=== PATIENT | female | born 1955 | race African-American/Black ===

== ENCOUNTER 2023-06-03 12:46 | Observation (INO) | payer BC, OTHER, SELFPAY ==
[2023-06-03 14:09] LABS: #Monocytes 0.5 10x3/uL (0.0-1.1); #Neutrophils 8.1 10x3/uL (1.5-8.4); %Basophils 0.2 % (0.0-2.0); %Lymphocytes 7.5 % (18.0-47.0); %Monocytes 4.9 % (0.0-10.0); Hematocrit 31.8 % (34.9-44.5); Hemoglobin 10.6 g/dL (12.0-15.5); Mean Corpuscular HGB CONC 33.3 g/dL (32.0-36.0); Mean Corpuscular Hemoglobin 28.6 pg (27.0-33.0); Mean Corpuscular Volume 85.7 fl (81.6-98.3); Platelet Count 191 10x3/uL (150-450); RBC Distribution Width 14.6 % (11.5-14.5); Red Blood Cell (RBC) Count 3.71 10x6/uL (3.90-5.03); White Blood Cell (WBC) Count 9.3 10x3/uL (3.5-10.5)
[2023-06-03 14:14] LABS: ALT (SGPT) 15 U/L (8-55); AST (SGOT) 23 U/L (5-34); Albumin 4.1 g/dL (3.4-4.8); Alkaline Phosphatase 58 U/L (40-110); Anion Gap 19 mmol/L (10-20); BUN (Urea Nitrogen) 30 mg/dL (9.8-20.1); Bilirubin, Total 0.4 mg/dL (0.2-1.2); Calc. Creatinine Clearance 0 mL/min (70-130); Calcium 8.7 mg/dL (7.8-10.44); Carbon Dioxide 22 mmol/L (23-31); Chloride 100 mmol/L (98-107); Estimated GFR 22; Globulin 3.2 g/dL (2.4-3.5); Glucose 118 mg/dL (80-115); Potassium 3.7 mmol/L (3.5-5.1); Protein, Total 7.3 g/dL (5.8-8.1); Sodium 137 mmol/L (136-145)
[2023-06-03 14:19] LABS: Troponin I 0.034 ng/mL (< 0.028)
[2023-06-03 14:25] LABS: Bilirubin Neg (Negative); Blood, Urine 25 (Negative); Glucose, Urine (Dipstick) Normal (Negative); Ketone, Urine Negative (Negative); Leukocyte 500 (Negative); Nitrite Negative (Negative); Protein, Urine (Dipstick) 30 mg/dl (Neg-Trace); Specific Gravity, Urine 1.025 (1.005-1.030); Urobilinogen Normal mg/dL (Less than 2)
[2023-06-03 14:29] LABS: SARS-CoV-2 NAA Rapid Test Not Detected (NotDetected)
[2023-06-03 14:58] LABS: Clarity Hazy (Clear)
[2023-06-03 14:59] LABS: CAUTI Indications for Culture Fever or rigors
[2023-06-03 15:01] LABS: Bacteria/HPF 3+ HPF (None Seen)
[2023-06-03] MEDS ORDERED: Ondansetron ODT 4 MG TAB PO PRN (15:07)
[2023-06-03] MEDS ORDERED: Acetaminophen 325 MG TAB PO PRN (15:07)
[2023-06-03] MEDS ORDERED: Ondansetron PF 4 MG/2 ML Vial IVP PRN (15:07)
[2023-06-03 15:08] LABS: Urine Culture Reflex Yes Yes
[2023-06-03] MEDS ORDERED: cefTRIAXone (ROCEPHIN) 1 GM VIAL ONE (15:26)
[2023-06-03 19:09] VITALS: BMI 25.6
[2023-06-03] MEDS: Sodium Chloride 0.9% 1,000 ML IV SCH (20:51)
[2023-06-04] MEDS ORDERED: Loperamide HCl 2 MG CAP PO SCH (00:30)
[2023-06-04 03:27] LABS: #Monocytes 0.3 10x3/uL (0.0-1.1); #Neutrophils 3.9 10x3/uL (1.5-8.4); %Basophils 0.6 % (0.0-2.0); %Lymphocytes 21.5 % (18.0-47.0); %Monocytes 5.7 % (0.0-10.0); %Neutrophils 71.8 % (40.0-75.0); Hematocrit 28.7 % (34.9-44.5); Hemoglobin 9.1 g/dL (12.0-15.5); Mean Corpuscular HGB CONC 31.7 g/dL (32.0-36.0); Mean Corpuscular Hemoglobin 27.8 pg (27.0-33.0); Mean Corpuscular Volume 87.8 fl (81.6-98.3); Mean Platelet Volume 10.5 fl (7.4-10.4); Platelet Count 165 10x3/uL (150-450); RBC Distribution Width 14.6 % (11.5-14.5); Red Blood Cell (RBC) Count 3.27 10x6/uL (3.90-5.03); White Blood Cell (WBC) Count 5.4 10x3/uL (3.5-10.5)
[2023-06-04] MEDS: Sodium Chloride 0.9% 1,000 ML IV SCH ×2 (03:35→11:17)
[2023-06-04 03:51] LABS: Anion Gap 15 mmol/L (10-20); BUN (Urea Nitrogen) 25 mg/dL (9.8-20.1); Calc. Creatinine Clearance 50 mL/min (70-130); Calcium 7.5 mg/dL (7.8-10.44); Carbon Dioxide 17 mmol/L (23-31); Chloride 107 mmol/L (98-107); Estimated GFR 48; Glucose 85 mg/dL (80-115); Potassium 3.3 mmol/L (3.5-5.1); Sodium 136 mmol/L (136-145)
[2023-06-04] MEDS ORDERED: FLU VACC QS2023(65UP)/MF59C/PF 60 MCG/0.5 ML SYRINGE IM ONE (09:00)
[2023-06-04] MEDS ORDERED: Oseltamivir 6 MG/ML ORAL SUSP PO SCH ×2 (09:00→21:00)
[2023-06-04] MEDS ORDERED: Oseltamivir 75 MG CAP PO SCH (09:30)
[2023-06-04 10:54] VITALS: BP 124/49; TEMP 97.8
[2023-06-04] MEDS ORDERED: Potassium Chloride 20 MEQ TAB PO SCH (11:30)
== END 2023-06-04 12:55 | disposition home or self-care (01) ==
LOC: CSHERS 12:46 → CSHTELE 16:35
PROVIDERS: ADMIT Family Medicine; ATTEND Hospitalist
DX: N17.9 Acute kidney failure, unspecified (principal); E86.0 Dehydration; I10 Essential (primary) hypertension; E03.9 Hypothyroidism, unspecified; R79.89 Other specified abnormal findings of blood chemistry; J11.1 Influenza due to unidentified influenza virus with other respiratory manifestations; E87.6 Hypokalemia; Z88.2 Allergy status to sulfonamides; Z79.890 Hormone replacement therapy; Z79.899 Other long term (current) drug therapy; Z20.822 Contact with and (suspected) exposure to COVID-19
CPT/HCPCS: 36415; 71045; 80048; 80053; 81001; 84443; 84484; 85025; 87086; 93005; 94760; 96361; 96365; G0378; J0696; J7050